=== PATIENT | female | born 1965 | race Caucasian/White ===

== ENCOUNTER 2017-02-17 03:02 | Emergency (ER) | payer BC ==
[2017-02-17 03:10] VITALS: BP 142/97
[2017-02-17] MEDS ORDERED: Sodium Chloride 0.9% 10 ML Syringe FLUSH PRN (03:29)
[2017-02-17] MEDS ORDERED: Ondansetron 4 MG/2 ML SDV IVPUSH ONE (03:29)
[2017-02-17] MEDS ORDERED: Famotidine 20 MG/2 ML SDV IVPUSH ONE (03:29)
[2017-02-17] MEDS ORDERED: Ketorolac 30 MG/ML SDV IVPUSH SCH (03:30)
--- NOTE | 2017-02-17 03:37 | EDM.PDOC ---
ED HPI GENERAL MEDICAL PROBLEM - General Chief Complaint: Gastrointestinal Problem Stated Complaint: cramping Time Seen by Provider: 02/17/17 03:21 Source of Information: Reports: Patient, RN Notes Reviewed - History of Present Illness INITIAL COMMENTS - FREE TEXT/NARRATIVE: 51-year-old female comes in with upper abdominal discomfort comfort, watery diarrhea. She had onset of this last evening about 9 hours ago. She has a steady discomfort upper midabdomen with superimposed severe cramps that come and go. She has had about 3 or 4 episodes of watery diarrhea. She does feel some nausea but has not been vomiting. She states she is been having "attacks of this nature" for about the past 3 weeks. She may have a day or 2 where everything does seem okay and she will get sick once again. She has had prior colonoscopy and that apparently was okay. She does have history of hypertension. She is not aware of other medical problems. - Related Data Allergies Allergy/AdvReac Type Severity Reaction Status Date / Time Sulfa (Sulfonamide Allergy Swelling Verified 04/04/16 11:50 Antibiotics) Home Meds: Home Meds Lisinopril [Prinivil] 1 tab PO ASDIRECTED 04/04/16 [History] Ciprofloxacin HCl [Cipro] 500 mg PO BID #6 tablet 02/17/17 [Rx] Hydrocodone/Acetaminophen [[place] 5-325 Tablet] 1 each PO Q6HR PRN #14 tablet [Rx] Past Medical History Cardiovascular History: Reports: Hypertension Genitourinary History: Reports: Renal Calculus - Past Surgical History Female Surgical History: Reports: Tubal Ligation Social & Family History - Family History Family Medical History: Noncontributory - Tobacco Use Smoking Status *Q: Current Every Day Smoker Years of Tobacco use: 20 Packs/Tins Daily: 0.5 - Caffeine Use Caffeine Use: Reports: Soda - Recreational Drug Use Recreational Drug Use: No ED ROS GENERAL - Review of Systems Review Of Systems: See Below Constitutional: Denies: Fever, Chills, Diaphoresis HEENT: Denies: Throat Pain Respiratory: Denies: Shortness of Breath, Pleuritic Chest Pain Cardiovascular: Denies: Chest Pain GI/Abdominal: Reports: Abdominal Pain (Upper mid abdomen), Diarrhea, Nausea. Denies: Hematochezia, Melena, Vomiting Musculoskeletal: Reports: No Symptoms Skin: Reports: No Symptoms Neurological: Reports: No Symptoms ED EXAM, GI/ABD - Physical Exam Exam: See Below General Appearance: Alert, Moderate Distress Throat/Mouth: Normal Inspection, Normal Oropharynx Neck: Supple Respiratory/Chest: No Respiratory Distress, Lungs Clear, Chest Non-Tender Cardiovascular: Tachycardia GI/Abdominal Exam: Tender. No: Guarding, Rebound (Upper mid abdomen) Back Exam: No: CVA Tenderness (L), CVA Tenderness (R) Extremities: Normal Inspection, Normal Range of Motion Neurological: Alert, Oriented, No Motor/Sensory Deficits Skin Exam: Warm, Dry, Normal Color Course - Vital Signs Last Recorded V/S: Last Vital Signs Temp 97.5 F 02/17/17 03:07 Pulse 107 H 02/17/17 03:07 Resp 16 02/17/17 03:07 BP 142/97 H 02/17/17 03:07 Pulse Ox 95 02/17/17 03:07 - Orders/Labs/Meds Orders: Active Orders 24 hr Category Date Time Status Peripheral IV Care [RC] . DIRECTED Care 02/17/17 03:29 Active Abdomen 2V AP Flat Upright [CR] Stat Exams 02/17/17 03:30 Taken Ketorolac [Toradol] Med 02/17/17 03:30 Active 30 mg IVPUSH ONETIME Sodium Chloride 0.9% [Normal Saline] 1,000 ml Med 02/17/17 03:45 Active IV ONETIME Sodium Chloride 0.9% [Saline Flush] Med 02/17/17 03:29 Active 10 ml FLUSH ASDIRECTED PRN Peripheral IV Insertion Adult [OM.PC] Stat Oth 02/17/17 03:29 Ordered Medication Orders Sodium Chloride (Normal Saline) 1,000 mls @ 999 mls/hr IV ONETIME JONO Last Admin: 02/17/17 03:53 Dose: 999 mls/hr Ketorolac Tromethamine (Toradol) 30 mg IVPUSH ONETIME JONO Last Admin: 02/17/17 03:54 Dose: 30 mg Sodium Chloride (Saline Flush) 10 ml FLUSH ASDIRECTED PRN PRN Reason: Keep Vein Open Last Admin: 02/17/17 03:53 Dose: 10 ml Labs: Laboratory Tests 02/17/17 02/17/17 Range/Units 03:45 03:45 WBC 12.44 H (3.98-10.04) K/mm3 RBC 5.60 H (3.98-5.22) M/mm3 Hgb 16.0 H (11.2-15.7) gm/L Hct 46.6 H (34.1-44.9) % MCV 83.2 (79.4-94.8) fl MCH 28.6 (25.6-32.2) pg MCHC 34.3 (32.2-35.5) g/dl RDW Std Deviation 41.4 (36.4-46.3) fL Plt Count 227 (182-369) K/mm3 MPV 10.4 (9.4-12.3) fl Neut % (Auto) 77.5 H (34.0-71.1) % Lymph % (Auto) 15.5 L (19.3-51.7) % Island % (Auto) 5.4 (4.7-12.5) % Eos % (Auto) 1.1 (0.7-5.8) Baso % (Auto) 0.3 (0.1-1.2) % Neut # (Auto) 9.63 H (1.56-6.13) K/mm3 Lymph # (Auto) 1.93 (1.18-3.74) K/mm3 Island # (Auto) 0.67 H (0.24-0.36) K/mm3 Eos # (Auto) 0.14 (0.04-0.36) K/mm3 Baso # (Auto) 0.04 (0.01-0.08) K/mm3 Sodium 143 (136-145) mEq/L Potassium 3.8 (3.5-5.1) mEq/L Chloride 105 (98-107) mEq/L Carbon Dioxide 27 (21-32) mEq/L Anion Gap 14.8 (5-15) BUN 12 (7-18) mg/dL Creatinine 0.9 (0.55-1.02) mg/dL Est Cr Clr Drug Dosing 53.12 mL/min Estimated GFR (MDRD) > 60 (>60) mL/min BUN/Creatinine Ratio 13.3 L (14-18) Glucose 139 H (74-106) mg/dL Calcium 10.1 (8.5-10.1) mg/dL Total Bilirubin 0.7 (0.2-1.0) mg/dL AST 20 (15-37) U/L ALT 28 (14-59) U/L Alkaline Phosphatase 109 (46-116) U/L Total Protein 7.4 (6.4-8.2) g/dl Albumin 3.9 (3.4-5.0) g/dl Globulin 3.5 gm/dL Albumin/Globulin Ratio 1.1 (1-2) Lipase 108 (73-393) U/L Meds: Medications Generic Name Dose Route Start Last Admin Trade Name Freq PRN Reason Stop Dose Admin Sodium Chloride 1,000 mls @ 999 mls/hr 02/17/17 03:45 02/17/17 03:53 Normal Saline IV 999 mls/hr ONETIME JONO Administration Ketorolac Tromethamine 30 mg 02/17/17 03:30 02/17/17 03:54 Toradol IVPUSH 30 mg ONETIME JONO Administration Sodium Chloride 10 ml 02/17/17 03:29 02/17/17 03:53 Saline Flush FLUSH 10 ml ASDIRECTED PRN Administration Keep Vein Open Discontinued Medications Generic Name Dose Route Start Last Admin Trade Name Freq PRN Reason Stop Dose Admin Famotidine 20 mg 02/17/17 03:29 02/17/17 03:54 Pepcid IVPUSH 02/17/17 03:30 20 mg ONETIME ONE Administration Ondansetron HCl 4 mg 02/17/17 03:29 02/17/17 03:54 Zofran IVPUSH 02/17/17 03:30 4 mg ONETIME ONE Administration - Re-Assessments/Exams Free Text/Narrative Re-Assessment/Exam: 02/17/17 04:46 Feels much better after IV Zofran and Toradol. Flat and upright of the abdomen looks okay there are some very tiny air-fluid levels visible but nothing major, labs are relatively okay. Her pain is completely gone. Discharge instructions as documented Departure - Departure Time of Disposition: 04:46 Disposition: Home, Self-Care 01 Condition: Fair Clinical Impression: Abdominal pain, Diarrhea - Discharge Information Prescriptions: Hydrocodone/Acetaminophen [[place] 5-325 Tablet] 1 each PO Q6HR PRN #14 tablet PRN Reason: Abdominal Pain Ciprofloxacin HCl [Cipro] 500 mg PO BID #6 tablet Forms: ED Department Discharge Additional Instructions: Clear liquids until this evening, then very careful bland diet as tolerated, probiotic, available OTC, twice daily for 1 week and thereafter as needed for any further diarrhea, Cipro antibiotic 500 mg twice daily for 3 days, Tylenol or Motrin for mild to moderate discomfort or hydrocodone if needed for severe pain. Drive or work when taking hydrocodone. Follow-up with your regular medical provider if symptoms not resolving within 1-2 days as expected or if having further difficulties. - My Orders Last 24 Hours: My Active Orders 02/17/17 03:29 Peripheral IV Care [RC] . DIRECTED Sodium Chloride 0.9% [Saline Flush] 10 ml FLUSH ASDIRECTED PRN Peripheral IV Insertion Adult [OM.PC] Stat 02/17/17 03:30 Abdomen 2V AP Flat Upright [CR] Stat Ketorolac [Toradol] 30 mg IVPUSH ONETIME 02/17/17 03:45 Sodium Chloride 0.9% [Normal Saline] 1,000 ml IV ONETIME - Assessment/Plan Last 24 Hours: My Active Orders 02/17/17 03:29 Peripheral IV Care [RC] . DIRECTED Sodium Chloride 0.9% [Saline Flush] 10 ml FLUSH ASDIRECTED PRN Peripheral IV Insertion Adult [OM.PC] Stat 02/17/17 03:30 Abdomen 2V AP Flat Upright [CR] Stat Ketorolac [Toradol] 30 mg IVPUSH ONETIME 02/17/17 03:45 Sodium Chloride 0.9% [Normal Saline] 1,000 ml IV ONETIME
[2017-02-17] MEDS ORDERED: Sodium Chloride 0.9% 1,000 ML IV SCH (03:45)
--- NOTE | 2017-02-17 06:30 | CR ---
Abdomen: Supine view of the abdomen was obtained as well as upright study. Small radiopacities are seen within the left upper abdomen believed to represent ingested material. Bowel gas pattern is normal. Calcifications are seen within the pelvis which are compatible with phleboliths. Bony structures are unremarkable. Impression: 1. Incidental findings. Diagnostic code #2
== END 2017-02-17 05:00 | disposition home or self-care (01) ==
LOC: JD.ED 03:02
DX: R19.7 Diarrhea, unspecified (principal); R10.11 Right upper quadrant pain; F17.210 Nicotine dependence, cigarettes, uncomplicated; I10 Essential (primary) hypertension; Z88.2 Allergy status to sulfonamides
CPT/HCPCS: 36415; 74020; 80053; 83690; 85025; 96361; 96374; 96375; 99284; J1885; J2405; J7040; J7050

== ENCOUNTER 2017-03-17 22:25 | Emergency (ER) | payer BC ==
[2017-03-17 22:45] VITALS: BP 135/92
--- NOTE | 2017-03-17 23:01 | EDM.PDOC ---
ED HPI GENERAL MEDICAL PROBLEM - General Chief Complaint: Genitourinary Problem Stated Complaint: POSS UTI Time Seen by Provider: 03/17/17 22:45 Source of Information: Reports: Patient History Limitations: Reports: No Limitations - History of Present Illness INITIAL COMMENTS - FREE TEXT/NARRATIVE: The patient states that she saw her PCP, Lisa Aubrey, on 03/02/2017 , for upper abdominal pain. A CBC, CMP, lipase, CRP, urinalysis, and H pylori IgG Ab were ordered. Her WBC count was 10.75 with 0% bandemia. Her CRP was unremarkable. Her lipase and CRP were within normal limits, however, her urinalysis was remarkable for 3+ occult blood, nitrate negative, leukocyte esterase negative, too numerous to count RBCs, 0-5 WBCs, 0-5 epithelial cells, and moderate bacteria, and her H pylori IgG Ab was positive. She states that she was started on a triple antibiotic protocol for treatment of an ulcer. The ultrasound of the right upper quadrant was performed on 03/08/2017, which was unremarkable. The patient states that shortly after her visit with Ms. Burgos, she developed gross hematuria. She followed up with Rosy Hou on 03/11/2017. A repeat CBC, CMP, CRP, and urinalysis were performed, along with a CT scan of the abdomen and pelvis without contrast, to evaluate for a ureterolith. The CBC, CMP, and CRP were normal. The urinalysis again demonstrated 3+ occult blood, nitrate negative, leukocyte esterase negative, too numerous to count RBCs, 0-5 WBCs, 0- 5 epithelial cells, and few bacteria. The CT scan of the abdomen and pelvis found a small area of increased density within the left kidney, most likely due to a small hemorrhagic cyst. This was either stable or possibly slightly decreased in size from previous exam. A small nonobstructing stone was noted inferiorly within the left kidney which was stable. No ureteral dilatation or ureteral stone was appreciated. The patient was referred to a Brick Cleaner, to whom she has an appointment to see here in [place] on 04/07/2017, and a Urologist, to whom she has an appointment to see in [place] on 04/19/2014. She does not recall the name of either of these physicians. The patient now presents with urinary urgency all day, but worse for the past 4 hours, along with suprapubic pain all day, dysuria, urinary frequency, and low back pain that developed tonight. No recent fever. No nausea or vomiting. No prior similar symptoms. Pelvic Pain Score (Numeric/FACES): 10 - Related Data Allergies Allergy/AdvReac Type Severity Reaction Status Date / Time Sulfa (Sulfonamide Allergy Swelling Verified 03/17/17 22:38 Antibiotics) Home Meds: Home Meds Lisinopril [Prinivil] 1 tab PO ASDIRECTED 04/04/16 [History] Hyoscyamine [Levsin] 1 tab SL TID PRN 03/18/17 [History] Oxybutynin 1 tab PO Q8H PRN #30 tablet 03/18/17 [Rx] Past Medical History Cardiovascular History: Reports: Hypertension - Past Surgical History HEENT Surgical History: Reports: Other (See Below) (Fractured mandible wiring) Female Surgical History: Reports: Tubal Ligation Social & Family History - Family History Family Medical History: Noncontributory - Tobacco Use Smoking Status *Q: Current Every Day Smoker Years of Tobacco use: 30 Packs/Tins Daily: 0.5 - Caffeine Use Caffeine Use: Reports: Coffee - Alcohol Use Alcohol Use History: No - Recreational Drug Use Recreational Drug Use: No - Living Situation & Occupation Living situation: Reports: , with Spouse Occupation: Employed ([employer]) ED ROS GENERAL - Review of Systems Review Of Systems: ROS reveals no pertinent complaints other than HPI. ED EXAM, RENAL/ - Physical Exam Exam: See Below Exam Limited By: No Limitations General Appearance: Alert, WD/WN, Mild Distress (Appears uncomfortable) Eye Exam: Bilateral Eye: Normal Inspection Ears: Normal External Exam, Hearing Grossly Normal Nose: Normal Inspection, No Blood Throat/Mouth: Normal Inspection, Normal Lips, Normal Voice, No Airway Compromise Head: Atraumatic, Normocephalic Neck: Normal Inspection, Full Range of Motion Respiratory/Chest: No Respiratory Distress, Lungs Clear, Normal Breath Sounds, No Accessory Muscle Use Cardiovascular: Normal Peripheral Pulses, Regular Rate, Rhythm, No Gallop, No JVD, No Murmur, No Rub GI/Abdominal: Normal Bowel Sounds, Soft, No Organomegaly, No Distention, No Abnormal Bruit, No Mass, Tender (Suprapubic only. Essentially nontender elsewhere.), Other (Obese) (Female) Exam: Deferred Rectal (Female) Exam: Deferred Back Exam: Normal Inspection, Full Range of Motion. No: CVA Tenderness (L), CVA Tenderness (R) Extremities: Normal Inspection, Normal Range of Motion, No Pedal Edema, Normal Capillary Refill Neurological: Alert, Oriented, Normal Cognition, No Motor/Sensory Deficits Psychiatric: Normal Affect Skin Exam: Warm, Dry, Intact, Normal Color, No Rash Course - Vital Signs Last Recorded V/S: Last Vital Signs Temp 36.0 C 03/17/17 22:40 Pulse 112 H 03/17/17 22:40 Resp 18 03/17/17 22:40 BP 135/92 H 03/17/17 22:40 Pulse Ox 99 03/17/17 22:40 - Orders/Labs/Meds Orders: Active Orders 24 hr Category Date Time Status CULTURE URINE [RM] Stat Lab 03/18/17 01:16 Received Labs: Laboratory Tests 03/17/17 Range/Units 23:04 Urine Color [place] H (Yellow) Urine Appearance Turbid H (Clear) Urine pH 5.5 (5.0-8.0) Ur Specific [place] > or = 1.030 (1.005-1.030) Urine Protein 1+ H (Negative) Urine Glucose (UA) Negative (Negative) Urine Ketones Negative (Negative) Urine Occult Blood 3+ H (Negative) Urine Nitrite Negative (Negative) Urine Bilirubin 1+ H (Negative) Urine Urobilinogen 1.0 (0.2-1.0) Ur Leukocyte Esterase Negative (Negative) Urine RBC >100 H (0-5) /hpf Urine WBC 0-5 (0-5) /hpf Ur Epithelial Cells 5-10 H (0-5) /hpf Amorphous Sediment Moderate H (NOT SEEN) /hpf Urine Bacteria Rare (FEW) /hpf Urine Mucus Not seen (FEW) /hpf Meds: Medications Discontinued Medications Generic Name Dose Route Start Last Admin Trade Name Freq PRN Reason Stop Dose Admin Oxybutynin Chloride 5 mg 03/18/17 01:14 03/18/17 01:33 Oxybutynin PO 03/18/17 01:15 5 mg ONETIME STA Administration - Re-Assessments/Exams Free Text/Narrative Re-Assessment/Exam: 03/18/17 01:15 Case urinalysis is essentially the same as the prior 2 urinalyses, demonstrating hematuria, but not consistent with a UTI. Case discussed with the Urologist Dr. Jacobs at 01:06. He recommends that we send the urine for culture, and treat her discomfort with Ditropan, otherwise , she needs an outpatient evaluation that includes cystoscopy. He has no other recommendations for the patient's discomfort at this time. Departure - Departure Time of Disposition: 01:22 Disposition: Home, Self-Care 01 Condition: Fair Clinical Impression: Painful bladder spasm, Gross hematuria - Discharge Information Prescriptions: Oxybutynin 1 tab PO Q8H PRN #30 tablet PRN Reason: Pain Instructions: Hematuria, Adult Referrals: Lisa Burgos PA [Primary Care Provider] - Forms: ED Department Discharge, ED Return to Work/School Form Additional Instructions: You were seen in the emergency room for painful urination, the need to urinate frequently, lower abdominal pain, and lower back pain. Workup in the ER included a urinalysis. A urine culture was also sent. Your urinalysis is unchanged from your to prior urinalyses on 03/03/2017 and 03/11, showing blood in the urine, but no suggestion of an infection. Your case was discussed with the Urologist Dr. Jacobs, who recommended that we start you on the anti-spasm medicine Ditropan (oxybutynin). A prescription for this medicine has been sent to the [facility], [address] [place] [address]. They will be open at 9:00 AM. Take one tablet of oxybutynin every 8 hours, as needed for bladder spasm, as prescribed. If this medicine works to relieve your symptoms, additional prescriptions can be prescribed by your PCP, Lisa Burgos. Follow-up with a Urologist at the next available appointment. If any other problems, please do not hesitate to return to the ER. - My Orders Last 24 Hours: My Active Orders 03/18/17 01:16 CULTURE URINE [RM] Stat - Assessment/Plan Last 24 Hours: My Active Orders 03/18/17 01:16 CULTURE URINE [RM] Stat
[2017-03-18] MEDS ORDERED: Oxybutynin 5 MG Tab PO STA (01:14)
== END 2017-03-18 01:45 | disposition home or self-care (01) ==
LOC: JD.ED 22:25
DX: N32.89 Other specified disorders of bladder (principal); R31.0 Gross hematuria; I10 Essential (primary) hypertension; F17.210 Nicotine dependence, cigarettes, uncomplicated; Z88.2 Allergy status to sulfonamides
CPT/HCPCS: 81001; 87086; 99283; A9270

== ENCOUNTER 2017-04-20 07:38 | Day surgery (SDC) | payer BC ==
[~2017-04-20 07:38] MED LIST: Lactated Ringers 1,000 ML IV SCH; Lidocaine 1% 4 ML ONE; Lidocaine 1%/Sod Bicarbonate in NS 8.4% 1 ML Syringe IDERM PRN; Propofol 200 MG/20 ML SDV ONE; Sodium Chloride 0.9% 10 ML Syringe FLUSH PRN
--- NOTE | 2017-04-20 07:57 | PCM.PREANE ---
Preanesthetic Assessment - Anesthesia/Transfusion/Family Hx Anesthesia History: Prior Anesthesia Without Reaction Family History of Anesthesia Reaction: No Transfusion History: No Prior Transfusion(s) - Review of Systems General: No Symptoms Pulmonary: Cough (in am sulaiman of smoking) Cardiovascular: No Symptoms Gastrointestinal: No Symptoms, Abdominal Pain Neurological: No Symptoms Other: Reports: Easy Bruising, Depression (denies) - Physical Assessment NPO Status Date: 04/19/17 NPO Status Time: 23:30 Pulse: 77 O2 Sat by Pulse Oximetry: 95 Respiratory Rate: 16 Blood Pressure: 126/74 Temperature: 97.4 F Height: 5 ft Weight: 66 kg ASA Class: 2 Mental Status: Alert & Oriented x3 Airway Class: Mallampati = 1 Dentition: Reports: Dentures (top) Thyro-Mental Finger Breadths: 3 Mouth Opening Finger Breadths: 3 ROM/Head Extension: Full Lungs: Clear to Auscultation, Normal Respiratory Effort Cardiovascular: Regular Rate, Regular Rhythm - Allergies Allergies/Adverse Reactions: Allergies Allergy/AdvReac Type Severity Reaction Status Date / Time moxifloxacin Allergy Swelling Verified 04/19/17 14:32 Sulfa (Sulfonamide Allergy Swelling Verified 04/19/17 14:32 Antibiotics) - Blood Blood Available: No - Acknowledgements Anesthesia Type Planned: MAC Pt an Appropriate Candidate for the Planned Anesthesia: Yes Alternatives and Risks of Anesthesia Discussed w Pt/Guardian: Yes Pt/Guardian Understands and Agrees with Anesthesia Plan: Yes PreAnesthesia Questionnaire HEENT History: Reports: Other (See Below) Other HEENT History: conjunctivitis, glasses, dentures Cardiovascular History: Reports: Hypertension Respiratory History: Reports: Asthma (inhalers) Gastrointestinal History: Reports: Helicobacter Pylori, Other (See Below) Other Gastrointestinal History: abdominal pain, nausea Genitourinary History: Reports: Renal Calculus, Other (See Below) Other Genitourinary History: dysuria, hematuria [place] History: Reports: None Musculoskeletal History: Reports: Other (See Below) Other Musculoskeletal History: muscle spasms, finger fracture Neurological History: Reports: None Psychiatric History: Reports: Anxiety, Depression Endocrine/Metabolic History: Reports: None Hematologic History: Reports: None Immunologic History: Reports: None Oncologic (Cancer) History: Reports: None Dermatologic History: Reports: Other (See Below) Other Dermatologic History: cellulitis - Past Surgical History Head Surgeries/Procedures: Reports: None HEENT Surgical History: Reports: Other (See Below) Other HEENT Surgeries/Procedures: jaw surgery (broken jaw) Cardiovascular Surgical History: Reports: None Respiratory Surgical History: Reports: None GI Surgical History: Reports: Colonoscopy Female Surgical History: Reports: Tubal Ligation Endocrine Surgical History: Reports: None Neurological Surgical History: Reports: None Oncologic Surgical History: Reports: None - SUBSTANCE USE Smoking Status *Q: Current Every Day Smoker Tobacco Use Within Last Twelve Months: Cigarettes Second Hand Smoke Exposure: Yes Days Per Week of Alcohol Use: 0 Recreational Drug Use History: No - HOME MEDS Home Medications: Home Meds Hyoscyamine [Levsin] 1 tab SL TID PRN 03/18/17 [History] Cyclobenzaprine [Flexeril] 5 mg PO DAILY 04/19/17 [History] Ibuprofen 1 - 3 tab PO Q6H PRN 04/19/17 [History] Losartan/Hydrochlorothiazide [Losartan-HCTZ 50-12.5 MG] 1 tab PO DAILY 04/19/17 [History] - CURRENT (IN HOUSE) MEDS Current Meds: Current Medications Lactated Ringer's (Ringers, Lactated) 1,000 mls @ 125 mls/hr IV ASDIRECTED JONO Stop: 04/20/17 23:00 Lidocaine/Sodium Bicarbonate (Buffered Lidocaine 1% In Ns 8.4%) 0.25 ml IDERM ONETIME PRN PRN Reason: Prior to IV Start Stop: 04/20/17 18:00 Sodium Chloride (Saline Flush) 10 ml FLUSH ASDIRECTED PRN PRN Reason: Keep Vein Open Stop: 04/20/17 18:00 Discontinued Medications Lidocaine HCl (Xylocaine-Mpf 1%) Confirm Administered Dose 4 mls @ as directed .ROUTE .STK-MED ONE Stop: 04/20/17 07:37 Propofol (Diprivan 20 Ml) Confirm Administered Dose 200 mg .ROUTE .STK-MED ONE Stop: 04/20/17 07:37
--- NOTE | 2017-04-20 08:50 | PCM.OPNOTE ---
- General Post-Op/Procedure Note Date of Surgery/Procedure: 04/20/17 Operative Procedure(s): Esophagogastroduodenoscopy with GE junction gastric and antral biopsies Findings: 1. Sliding hiatal hernia with no mary ellen ulcers or erosions seen Pre Op Diagnosis: Epigastric pain in the setting of previous H. pylori infection Post-Op Diagnosis: Sliding hiatal hernia Anesthesia Technique: MAC, Moderate Sedation Primary Surgeon: Hiram Jackson Pathology: GE junction gastric and antral biopsies EBL in mLs: 0 Complications: None Condition: Good Free Text/Narrative:: After adequate IV sedation and analgesia was obtained with monitoring the patient was placed on her left side. Through a bite-block lubricated upper endoscope was inserted into the esophagus and advanced under direct vision to the stomach. Additional air was given here. The scope was introduced through the pylorus into the second part of the duodenum. The second and first parts were endoscopically normal with no mass lesions or inflammatory changes seen. The antrum was unremarkable as well but given her history and took 2 random biopsies for histologic review. The rugal folds were normal. In the retroflexed view the hiatal hernia was seen. The fundic and cardiac regions were endoscopically normal. I took 2 random biopsies in the stomach. The GE junction was patent with no stricturing. Biopsies were taken in this area. No gross endoscopic inflammatory changes were seen. The body of the esophagus was grossly normal. The vocal cords were grossly normal. Air was removed as I finished the procedure which she tolerated well. Photographs are taken for the patient and for the medical record.
[2017-04-20 09:36] VITALS: BP 126/74
--- NOTE | 2017-04-20 09:36 | PCM48HPAN ---
Post Anesthesia Note - EVALUATION WITHIN 48HRS OF ANESTHETIC Vital Signs in Normal Range: Yes Patient Participated in Evaluation: Yes Respiratory Function Stable: Yes Airway Patent: Yes Cardiovascular Function Stable: Yes Hydration Status Stable: Yes Pain Control Satisfactory: Yes Nausea and Vomiting Control Satisfactory: Yes Mental Status Recovered: Yes Pulse Rate: 77 Resp Rate: 16 Temperature: 97.4 F Blood Pressure: 126/74
== END 2017-04-20 09:18 | disposition home or self-care (01) ==
LOC: JD.SDS 07:38
PROVIDERS: ATTEND Surgery
DX: K44.9 Diaphragmatic hernia without obstruction or gangrene (principal); F41.8 Other specified anxiety disorders; I10 Essential (primary) hypertension; N95.1 Menopausal and female climacteric states; F17.210 Nicotine dependence, cigarettes, uncomplicated; Z88.1 Allergy status to other antibiotic agents; Z88.2 Allergy status to sulfonamides; Z79.899 Other long term (current) drug therapy; Z98.51 Tubal ligation status; Z98.890 Other specified postprocedural states
CPT/HCPCS: 43239; J7120; J2704

== ENCOUNTER 2018-06-08 22:03 | Emergency (ER) | payer BC, MEDICAID ==
[2018-06-08] MEDS ORDERED: Dexamethasone 10 MG/ML SDV IM ONE (22:21)
[2018-06-08] MEDS ORDERED: Benzonatate 100 MG Cap PO ONE (22:22)
[2018-06-08] MEDS: Albuterol/Ipratropium 3.0-0.5 MG/3 ML Neb Soln NEB PRN ×2 (22:27→22:50)
--- NOTE | 2018-06-08 22:28 | EDM.PDOC ---
ED HPI GENERAL MEDICAL PROBLEM - General Chief Complaint: Respiratory Problem Stated Complaint: cough Time Seen by Provider: 06/08/18 22:14 Source of Information: Reports: Patient History Limitations: Reports: No Limitations - History of Present Illness INITIAL COMMENTS - FREE TEXT/NARRATIVE: 52-year-old female presents to emergency room with chief complaints of cough for the past 3 weeks. She has been treated by her PCP and his had a negative influenza-positive strep tests chest x-ray was negative. She finished her course of Biaxin for strep last week but continues to have her cough. She was taking Tessalon Perles and Robitussin with codeine which made it better but she is currently out. Patient does report that she quit smoking 3 weeks ago. She does use a albuterol inhaler but continues to have a harsh cough which is causing her chest wall to hurt when she takes a deep breath. She denies any fever or chills. She denies any shortness of breath. Onset Date: 05/18/18 Onset Time: 21:00 Duration: Getting Worse Location: Reports: Chest Severity: Mild Worsens with: Reports: None Associated Symptoms: Reports: Cough. Denies: Fever/Chills, Nausea/Vomiting, Shortness of Breath - Related Data Allergies Allergy/AdvReac Type Severity Reaction Status Date / Time moxifloxacin Allergy Swelling Verified 06/08/18 22:15 Sulfa (Sulfonamide Allergy Swelling Verified 06/08/18 22:15 Antibiotics) Home Meds: Home Meds Ibuprofen 600 tab PO Q6H PRN 04/19/17 [History] Losartan/Hydrochlorothiazide [Losartan-HCTZ 50-12.5 MG] 1 tab PO DAILY 04/19/17 [History] Albuterol [Proventil HFA] 1 inh INH ASDIRECTED PRN 04/20/17 [History] Albuterol [Proventil HFA] 6.7 gm INH ASDIRECTED 04/20/17 [History] Benzonatate [Tessalon Perle] 200 mg PO Q8HR PRN 4 Days #12 capsule 06/08/18 [Rx] predniSONE [Prednisone] 20 mg PO DAILY 5 Days #10 tablet 06/08/18 [Rx] Past Medical History HEENT History: Reports: Other (See Below) Other HEENT History: conjunctivitis, glasses, dentures Cardiovascular History: Reports: Hypertension Respiratory History: Reports: Asthma Gastrointestinal History: Reports: Helicobacter Pylori, Other (See Below) Other Gastrointestinal History: abdominal pain, nausea Genitourinary History: Reports: Renal Calculus, Other (See Below) Other Genitourinary History: dysuria, hematuria 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 Musculoskeletal History: Reports: Other (See Below) Other Musculoskeletal History: muscle spasms, finger fracture Neurological History: Reports: None Psychiatric History: Reports: Anxiety, Depression Endocrine/Metabolic History: Reports: None Hematologic History: Reports: None Immunologic History: Reports: None Oncologic (Cancer) History: Reports: None Dermatologic History: Reports: Other (See Below) Other Dermatologic History: cellulitis - Past Surgical History Head Surgeries/Procedures: Reports: None HEENT Surgical History: Reports: Other (See Below) Other HEENT Surgeries/Procedures: jaw surgery (broken jaw) Cardiovascular Surgical History: Reports: None Respiratory Surgical History: Reports: None GI Surgical History: Reports: Colonoscopy Female Surgical History: Reports: Tubal Ligation Endocrine Surgical History: Reports: None Neurological Surgical History: Reports: None Oncologic Surgical History: Reports: None Social & Family History - Family History Family Medical History: Noncontributory - Tobacco Use Smoking Status *Q: Former Smoker Used Tobacco, but Quit: Yes Month/Year Tobacco Last Used: april 2018 - Caffeine Use Caffeine Use: Reports: Coffee - Recreational Drug Use Recreational Drug Use: No - Living Situation & Occupation Living situation: Reports: , with Spouse Occupation: Employed ([employer] ED ROS GENERAL - Review of Systems Review Of Systems: See Below Constitutional: Denies: Fever, Chills HEENT: Reports: No Symptoms Respiratory: Reports: Wheezing, Cough Cardiovascular: Denies: Chest Pain Endocrine: Reports: No Symptoms GI/Abdominal: Reports: No Symptoms : Reports: No Symptoms Musculoskeletal: Reports: No Symptoms Skin: Reports: No Symptoms Neurological: Reports: No Symptoms Psychiatric: Reports: No Symptoms Hematologic/Lymphatic: Reports: No Symptoms Immunologic: Reports: No Symptoms ED EXAM, GENERAL - Physical Exam Exam: See Below Exam Limited By: Uncooperative General Appearance: Alert, No Apparent Distress Ears: Normal External Exam, Normal Canal, Hearing Grossly Normal, Normal TMs Nose: Normal Inspection, Normal Mucosa, No Blood Throat/Mouth: Normal Inspection, Normal Lips, Normal Teeth, Normal Gums, Normal Oropharynx, Normal Voice, No Airway Compromise Head: Atraumatic, Normocephalic Neck: Normal Inspection, Supple, Non-Tender Respiratory/Chest: Wheezing Cardiovascular: Normal Peripheral Pulses, Regular Rate, Rhythm, No Edema, No Gallop, No JVD, No Murmur, No Rub Back Exam: Normal Inspection, Full Range of Motion Extremities: Normal Inspection, Normal Range of Motion, Non-Tender, No Pedal Edema, Normal Capillary Refill Neurological: Alert, Oriented, CN II-XII Intact, Normal Cognition, Normal Gait, Normal Reflexes, No Motor/Sensory Deficits Psychiatric: Normal Affect, Normal Mood Skin Exam: Warm, Dry, Intact, Normal Color, No Rash Lymphatic: No Adenopathy Course - Vital Signs Last Recorded V/S: Last Vital Signs Temp 97.2 F 06/08/18 22:13 Pulse 109 H 06/08/18 22:13 Resp 17 06/08/18 22:13 BP 148/91 H 06/08/18 22:13 Pulse Ox 96 06/08/18 22:29 - Orders/Labs/Meds Orders: Active Orders 24 hr Category Date Time Status RT Aerosol Therapy [RC] ASDIRECTED Care 06/08/18 22:20 Active Albuterol/Ipratropium [DuoNeb 3.0-0.5 MG/3 ML] Med 06/08/18 22:20 Active 3 ml NEB Q2H PRN Medication Orders Albuterol/Ipratropium (Duoneb 3.0-0.5 Mg/3 Ml) 3 ml NEB Q2H PRN PRN Reason: Cough Stop: 06/09/18 22:21 Last Admin: 06/08/18 22:27 Dose: 3 ml Meds: Medications Generic Name Dose Route Start Last Admin Trade Name Freq PRN Reason Stop Dose Admin Albuterol/Ipratropium 3 ml 06/08/18 22:20 06/08/18 22:50 Duoneb 3.0-0.5 Mg/3 Ml NEB 06/09/18 22:21 3 ml Q2H PRN Administration Cough Discontinued Medications Generic Name Dose Route Start Last Admin Trade Name Freq PRN Reason Stop Dose Admin Benzonatate 200 mg 06/08/18 22:22 06/08/18 22:30 Tessalon Perles PO 06/08/18 22:23 200 mg ONETIME ONE Administration Dexamethasone 10 mg 06/08/18 22:21 06/08/18 22:30 Dexamethasone IM 06/08/18 22:22 10 mg ONETIME ONE Administration - Re-Assessments/Exams Free Text/Narrative Re-Assessment/Exam: 06/08/18 22:58 52 y/o female presented to ER with cc cough for the past 3 weeks. She has recently finished antibiotic for strep throat. She was tested for influenza which was negative and she had a chest x-ray showed no acute disease. She received DuoNeb treatment, Tessalon Perles and Decadron and condition improved. I do not feel she needs further testing at this time. I will discharge home with a short course of prednisone and Tessalon Perles. Instructed patient to follow-up with her PCP. Instructed patient to return to the restroom for new or acutely worsening symptoms. Patient verbalized understanding and is comfortable plan for discharge. Condition is stable at time of discharge. Departure - Departure Time of Disposition: 22:58 Disposition: Home, Self-Care 01 Clinical Impression: Bronchitis - Discharge Information Prescriptions: Benzonatate [Tessalon Perle] 200 mg PO Q8HR PRN 4 Days #12 capsule PRN Reason: Cough predniSONE [Prednisone] 20 mg PO DAILY 5 Days #10 tablet Instructions: How to Use a Metered Dose Inhaler, Acute Bronchitis, Adult, Easy- to-Read, Upper Respiratory Infection, Adult, [id number] Referrals: Yue Burgos PA [Primary Care Provider] - Forms: ED Department Discharge Additional Instructions: You have been diagnosis with bronchitis. Continue to use Albuterol inhaler with spacer as prescribed. Take Prednisone as prescribed. Follow up with your PCP. Return to the ER for any new or acute worsening symptoms. - My Orders Last 24 Hours: My Active Orders 06/08/18 22:20 RT Aerosol Therapy [RC] ASDIRECTED Albuterol/Ipratropium [DuoNeb 3.0-0.5 MG/3 ML] 3 ml NEB Q2H PRN - Assessment/Plan Last 24 Hours: My Active Orders 06/08/18 22:20 RT Aerosol Therapy [RC] ASDIRECTED Albuterol/Ipratropium [DuoNeb 3.0-0.5 MG/3 ML] 3 ml NEB Q2H PRN
[2018-06-08 22:38] VITALS: BP 148/91
== END 2018-06-08 23:07 | disposition home or self-care (01) ==
LOC: JD.ED 22:03
DX: J40 Bronchitis, not specified as acute or chronic (principal); I10 Essential (primary) hypertension; F41.9 Anxiety disorder, unspecified; F32.9 Major depressive disorder, single episode, unspecified; Z87.891 Personal history of nicotine dependence; Z88.1 Allergy status to other antibiotic agents; Z88.2 Allergy status to sulfonamides; Z79.899 Other long term (current) drug therapy
CPT/HCPCS: 94640; 99283; A9270; J1100; J7620-GY

== ENCOUNTER 2018-10-31 23:41 | Emergency (ER) | payer BC ==
[2018-10-31 23:49] VITALS: PULSE 96
[2018-10-31 23:51] VITALS: BP 147/98
--- NOTE | 2018-11-01 00:52 | EDM.PDOC ---
ED HPI GENERAL MEDICAL PROBLEM - General Chief Complaint: Upper Extremity Injury/Pain Stated Complaint: SWOLLEN ELBOW ON RIGHT ARM Time Seen by Provider: 11/01/18 00:48 - History of Present Illness INITIAL COMMENTS - FREE TEXT/NARRATIVE: 53-year-old female presents to the emergency room with swelling over her right elbow. Patient bumped her elbow perhaps as far back as a week ago and has developed some significant swelling over the last couple of days. She has not any fevers or chills. She is able to move her elbow without difficulty. She has no significant discomfort with this. - Related Data Allergies Allergy/AdvReac Type Severity Reaction Status Date / Time moxifloxacin Allergy Swelling Verified 10/31/18 23:49 Sulfa (Sulfonamide Allergy Swelling Verified 10/31/18 23:49 Antibiotics) Home Meds: Home Meds Ibuprofen 600 tab PO Q6H PRN 04/19/17 [History] Losartan/Hydrochlorothiazide [Losartan-HCTZ 50-12.5 MG] 1 tab PO DAILY 04/19/17 [History] Albuterol [Proventil HFA] 1 inh INH ASDIRECTED PRN 04/20/17 [History] Albuterol [Proventil HFA] 6.7 gm INH ASDIRECTED 04/20/17 [History] Hydrocodone/Acetaminophen [Dent 5-325 Tablet] 1 each PO Q6HR PRN #14 tablet 07/09 [Rx] cephALEXin [Keflex] 500 mg PO Q6H #28 cap 11/01/18 [Rx] Past Medical History HEENT History: Reports: Other (See Below) Other HEENT History: conjunctivitis, glasses, dentures Cardiovascular History: Reports: Hypertension Respiratory History: Reports: Asthma Gastrointestinal History: Reports: Helicobacter Pylori, Other (See Below) Other Gastrointestinal History: abdominal pain, nausea Genitourinary History: Reports: Renal Calculus, Other (See Below) Other Genitourinary History: dysuria, hematuria 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 Musculoskeletal History: Reports: Other (See Below) Other Musculoskeletal History: muscle spasms, finger fracture Neurological History: Reports: None Psychiatric History: Reports: Anxiety, Depression Endocrine/Metabolic History: Reports: None Hematologic History: Reports: None Immunologic History: Reports: None Oncologic (Cancer) History: Reports: None Dermatologic History: Reports: Other (See Below) Other Dermatologic History: cellulitis - Past Surgical History Head Surgeries/Procedures: Reports: None HEENT Surgical History: Reports: Other (See Below) Other HEENT Surgeries/Procedures: jaw surgery (broken jaw) Cardiovascular Surgical History: Reports: None Respiratory Surgical History: Reports: None GI Surgical History: Reports: Colonoscopy Female Surgical History: Reports: Tubal Ligation Endocrine Surgical History: Reports: None Neurological Surgical History: Reports: None Oncologic Surgical History: Reports: None Social & Family History - Family History Family Medical History: Noncontributory - Tobacco Use Smoking Status *Q: Current Every Day Smoker Years of Tobacco use: 33 Packs/Tins Daily: 1 - Caffeine Use Caffeine Use: Reports: Coffee, Soda - Recreational Drug Use Recreational Drug Use: No - Living Situation & Occupation Living situation: Reports: , with Spouse Occupation: Employed ([employer]) Review of Systems - Review of Systems Review Of Systems: See Below Constitutional: Reports: No Symptoms Respiratory: Reports: No Symptoms Cardiovascular: Reports: No Symptoms GI/Abdominal: Reports: No Symptoms Skin: Reports: Other (Swelling without redness or warmth over the right elbow) Neurological: Reports: No Symptoms ED EXAM, GENERAL - Physical Exam Exam: See Below Exam Limited By: No Limitations General Appearance: Alert, No Apparent Distress Respiratory/Chest: No Respiratory Distress, Lungs Clear, Normal Breath Sounds Cardiovascular: Regular Rate, Rhythm, No Edema, No Murmur Extremities: Other (Over the right elbow the patient has an obvious olecranon bursitis she has full flexion and extension supination and pronation.) Skin Exam: Other (The skin over her right olecranon is not warm it has a slight irritation possibly an abrasion possibly from the patient scratching it is unclear) Course - Vital Signs Last Recorded V/S: Last Vital Signs Temp 36.7 C 10/31/18 23:46 Pulse 96 10/31/18 23:46 Resp 18 10/31/18 23:46 BP 147/98 H 10/31/18 23:51 Pulse Ox 99 10/31/18 23:46 - Orders/Labs/Meds Orders: Active Orders 24 hr Category Date Time Status Elbow Min 3V Rt [CR] Stat Exams 11/01/18 00:51 Taken - Re-Assessments/Exams Free Text/Narrative Re-Assessment/Exam: 11/01/18 01:28 The patient has a posttraumatic olecranon bursitis that developed while taking ibuprofen 600 mg 4 times a day. X-rays are unremarkable there is no redness or warmth over this however with this developing while taking ibuprofen we will go ahead and start her on cephalexin. Will apply an Sudhir wrap gently to help protect the area and applied gentle pressure. She is to follow-up in the clinic on Tuesday. Departure - Departure Time of Disposition: 01:30 Disposition: Home, Self-Care 01 Clinical Impression: Olecranon bursitis of right elbow - Discharge Information Prescriptions: cephALEXin [Keflex] 500 mg PO Q6H #28 cap Referrals: Latasha Ward PA-C [Primary Care Provider] - Forms: ED Department Discharge, ED Return to Work/School Form Additional Instructions: Return to the emergency room with any questions problems worsening symptoms. Take the antibiotics as directed. Continue your ibuprofen 600 mg 4 times a day. Follow-up in the clinic with your regular provider in 2 days. - My Orders Last 24 Hours: My Active Orders 11/01/18 00:51 Elbow Min 3V Rt [CR] Stat - Assessment/Plan Last 24 Hours: My Active Orders 11/01/18 00:51 Elbow Min 3V Rt [CR] Stat
[2018-11-01] MEDS ORDERED: Cephalexin 500 MG Cap PO ONE (01:24)
--- NOTE | 2018-11-05 05:18 | CR ---
Right elbow: Four views of the right elbow were obtained. Comparison: No prior elbow exam is available. Soft tissue swelling is noted within the olecranon process. Joint spaces are maintained. No joint effusion is seen. No fracture or other bony abnormality is seen. Impression: 1. Soft tissue swelling within the olecranon process. 2. No acute bony abnormality is identified on right elbow study. Diagnostic code #2
== END 2018-11-01 01:38 | disposition home or self-care (01) ==
LOC: JD.ED 23:41
DX: M70.21 Olecranon bursitis, right elbow (principal); I10 Essential (primary) hypertension; J45.909 Unspecified asthma, uncomplicated; F17.210 Nicotine dependence, cigarettes, uncomplicated; Z88.1 Allergy status to other antibiotic agents; Z88.2 Allergy status to sulfonamides; Z79.899 Other long term (current) drug therapy; Z79.51 Long term (current) use of inhaled steroids; Z98.51 Tubal ligation status
CPT/HCPCS: 73080; 99283; A9270

== ENCOUNTER 2020-06-16 15:29 | Emergency (ER) | payer OTHER ==
[2020-06-16 15:44] VITALS: BP 173/105; PULSE 89
--- NOTE | 2020-06-16 16:05 | EDM.PDOC ---
ED HPI GENERAL MEDICAL PROBLEM - General Chief Complaint: Back Pain or Injury Stated Complaint: BACK PAIN Time Seen by Provider: 06/16/20 15:55 - History of Present Illness INITIAL COMMENTS - FREE TEXT/NARRATIVE: 54-year-old female presents the emergency room with upper back pain and having a rib out of position. Almost 2 weeks ago the patient injured her ribs on a trampoline. She is seen her chiropractor multiple times they believe they have got the ribs on one side back in position but not in the other. She was sent here from the chiropractor's office with the hopes of getting a muscle relaxant and possibly started on steroids. Patient is also having difficulty at work doing lifting. She is been using some ibuprofen which seems to help some but not nearly enough. She is not aware of any x-rays have been done since this injury. Right Back Pain Score (Numeric/FACES): 7 - Related Data Allergies Allergy/AdvReac Type Severity Reaction Status Date / Time moxifloxacin Allergy Swelling Verified 06/16/20 15:44 Sulfa (Sulfonamide Allergy Swelling Verified 06/16/20 15:44 Antibiotics) Home Meds: Home Meds Losartan/Hydrochlorothiazide [Losartan-HCTZ 50-12.5 MG] 1 tab PO DAILY 04/19/17 [History] Orphenadrine [Norflex] 100 mg PO BID PRN #14 tab 06/16/20 [Rx] predniSONE [Prednisone] 40 mg PO DAILY #8 tablet 06/16/20 [Rx] Past Medical History HEENT History: Reports: Other (See Below) Other HEENT History: conjunctivitis, glasses, dentures Cardiovascular History: Reports: Hypertension Respiratory History: Reports: Asthma Gastrointestinal History: Reports: Helicobacter Pylori, Other (See Below) Other Gastrointestinal History: abdominal pain, nausea Genitourinary History: Reports: Renal Calculus, Other (See Below) Other Genitourinary History: dysuria, hematuria SIZE 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: 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: None Musculoskeletal History: Reports: Other (See Below) Other Musculoskeletal History: muscle spasms, finger fracture Neurological History: Reports: None Psychiatric History: Reports: Anxiety, Depression Endocrine/Metabolic History: Reports: None Hematologic History: Reports: None Immunologic History: Reports: None Oncologic (Cancer) History: Reports: None Dermatologic History: Reports: Other (See Below) Other Dermatologic History: cellulitis - Infectious Disease History Infectious Disease History: Reports: None - Past Surgical History Head Surgeries/Procedures: Reports: None HEENT Surgical History: Reports: Other (See Below) Other HEENT Surgeries/Procedures: jaw surgery (broken jaw) Cardiovascular Surgical History: Reports: None Respiratory Surgical History: Reports: None GI Surgical History: Reports: Colonoscopy Female Surgical History: Reports: Tubal Ligation Endocrine Surgical History: Reports: None Neurological Surgical History: Reports: None Oncologic Surgical History: Reports: None Social & Family History - Family History Family Medical History: No Pertinent Family History - Tobacco Use Tobacco Use Status *Q: Current Every Day Tobacco User Years of Tobacco use: 30 Packs/Tins Daily: 0.2 - Caffeine Use Caffeine Use: Reports: Coffee, Soda - Recreational Drug Use Recreational Drug Use: No - Living Situation & Occupation Living situation: Reports: , with Spouse Occupation: Employed ([employer]) ED ROS GENERAL - Review of Systems Review Of Systems: See Below Constitutional: Reports: No Symptoms HEENT: Reports: No Symptoms Respiratory: Reports: Pleuritic Chest Pain Cardiovascular: Reports: No Symptoms Endocrine: Reports: No Symptoms GI/Abdominal: Reports: No Symptoms Musculoskeletal: Reports: Back Pain, Other (Rib pain). Denies: Neck Pain Skin: Reports: No Symptoms Neurological: Reports: No Symptoms ED EXAM, GENERAL - Physical Exam Exam: See Below Exam Limited By: No Limitations General Appearance: Alert, No Apparent Distress Head: Atraumatic, Normocephalic Neck: Normal Inspection, Supple, Non-Tender, Full Range of Motion Respiratory/Chest: No Respiratory Distress, Lungs Clear, Normal Breath Sounds, Other (She has some chest wall discomfort and thoracic spine discomfort with palpation) Cardiovascular: Regular Rate, Rhythm, No Edema, No Murmur GI/Abdominal: Normal Bowel Sounds, Soft, Non-Tender Back Exam: Vertebral Tenderness (The lower thoracic area just below the bra line is where tenderness is.) Course - Vital Signs Last Recorded V/S: Last Vital Signs Temp 37.1 C 06/16/20 15:42 Pulse 89 06/16/20 15:42 Resp 15 06/16/20 15:42 BP 173/105 H 06/16/20 15:42 Pulse Ox 95 06/16/20 15:42 - Orders/Labs/Meds Meds: Medications Discontinued Medications Generic Name Dose Route Start Last Admin Trade Name Freq PRN Reason Stop Dose Admin Ketorolac Tromethamine 30 mg 06/16/20 16:57 06/16/20 17:04 Ketorolac 30 Mg/Ml Sdv IM 06/16/20 16:58 30 mg ONETIME ONE Administration Orphenadrine Citrate 100 mg 06/16/20 17:01 Orphenadrine 100 Mg Tab.Er PO 06/16/20 17:02 ONETIME ONE Prednisone 40 mg 06/16/20 16:57 06/16/20 17:04 Prednisone 20 Mg Tab PO 06/16/20 16:58 40 mg ONETIME ONE Administration - Re-Assessments/Exams Free Text/Narrative Re-Assessment/Exam: 06/16/20 17:14 X-rays of the chest nonacute chest with some slight scoliosis of the spine noted 3 view T-spine shows degenerative changes with mild scoliosis again noted she is got a stable anterior wedge deformity within the mid thoracic spine no acute changes however I looked back and this was first identified when she was seen here on the fourth of this month. However the area that she claims is tender with palpation is lower than in the lower thoracic area certainly not the midthoracic area. Reasonable approach with the back pain is to try the muscle relaxants of the steroids and see how she does. Follow-up in the clinic in 2 days if not significantly improving look at advanced imaging to see if we get a idea of this fracture age and see if this is what is causing her discomfort. She palpates her pain below the bra line but the wedge deformities noted in the midthoracic area. Departure - Departure Time of Disposition: 17:25 Disposition: Home, Self-Care 01 Clinical Impression: Lower thoracic back pain - Discharge Information Referrals: Fabi Rodgers NP [Primary Care Provider] - Forms: ED Department Discharge, ED Return to Work/School Form Additional Instructions: Return to the emergency room with any questions problems or worsening symptoms. Take the medication as directed you have been started on the orphenadrine, this is a muscle relaxant take it twice daily. This can cause sedation so be careful and do not drive under the influence. The other medication is prednisone take starting tomorrow morning do not take ibuprofen or Motrin while taking this medication. You may use Tylenol 1000 mg every 6 hours as needed. Follow-up in the clinic in 2 days for recheck if not making good improvement consider advanced imaging to determine the age of the possible fracture seen in your thoracic spine. Sepsis Event Note (ED) - Evaluation Sepsis Screening Result: No Definite Risk - Focused Exam Vital Signs: Vital Signs Temp Pulse Resp BP Pulse Ox 06/16/20 15:42 37.1 C 89 15 173/105 H 95
--- NOTE | 2020-06-16 16:39 | CR ---
Chest: PA view of the chest was obtained. Comparison: Prior chest x-ray of 04/24/20. Heart size is slightly enlarged. Upper mediastinum is normal. Lungs are clear with no acute parenchymal change. Scoliosis is noted within the spine. No acute osseous abnormality is appreciated. Impression: 1. Mild cardiomegaly and slight scoliosis within the spine. 2. Nothing acute is otherwise seen on PA chest x-ray. Diagnostic code #2
--- NOTE | 2020-06-16 16:46 | CR ---
Thoracic spine: AP, lateral and swimmer's views of the thoracic spine were obtained. Comparison: No prior thoracic spine imaging is available. Prior chest x-ray of the 04/24/20. Scattered disc space narrowing within the cervical spine is noted with mild scattered endplate osteophytes. Thoracic spine shows slight anterior wedging within the mid thoracic spine which is stable from prior chest x-ray performed earlier. Scattered disc space narrowing is noted within the thoracic spine. No acute fracture or subluxation is seen. Scoliosis is present. Pedicles are intact. No paravertebral soft tissue swelling is seen. Impression: 1. Degenerative change and mild scoliosis. 2. Stable anterior wedge deformity within the mid thoracic spine. 3. Nothing acute is seen. Diagnostic code #2
[2020-06-16] MEDS ORDERED: Ketorolac 30 MG/ML SDV IM ONE (16:57)
[2020-06-16] MEDS ORDERED: predniSONE 20 MG Tab PO ONE (16:57)
[2020-06-16] MEDS ORDERED: Orphenadrine 100 MG Tab.ER PO ONE (17:01)
== END 2020-06-16 17:35 | disposition home or self-care (01) ==
LOC: JD.ED 15:29
DX: M54.6 Pain in thoracic spine (principal); M54.5 Low back pain; R07.89 Other chest pain; I10 Essential (primary) hypertension; Z72.0 Tobacco use; Z79.899 Other long term (current) drug therapy
CPT/HCPCS: 71045; 72072; 96372; 99283; A9270; J1885; J7512

== ENCOUNTER 2022-12-15 20:28 | Emergency (ER) | payer BC ==
[2022-12-15] MEDS ORDERED: Ketorolac 60 MG/2 ML SDV IM ONE (21:23)
[2022-12-15] MEDS ORDERED: tiZANidine 4 MG Tab PO SCH ×2 (21:30→23:30)
[2022-12-15 23:58] VITALS: BP 117/73; PULSE 74
[2022-12-16] MEDS ORDERED: tiZANidine 4 MG Tab PO SCH (09:00)
== END 2022-12-15 23:55 | disposition home or self-care (01) ==
LOC: JD.ED 20:28
DX: S30.0XXA Contusion of lower back and pelvis, initial encounter (principal); S40.012A Contusion of left shoulder, initial encounter; I10 Essential (primary) hypertension; J45.909 Unspecified asthma, uncomplicated; F17.210 Nicotine dependence, cigarettes, uncomplicated; Z79.899 Other long term (current) drug therapy; Z88.1 Allergy status to other antibiotic agents; Z88.2 Allergy status to sulfonamides; Z91.041 Radiographic dye allergy status; W10.9XXA Fall (on) (from) unspecified stairs and steps, initial encounter
CPT/HCPCS: 72131; 72170; 73030; 96372; 99284; A9270; J1885; 99283

== ENCOUNTER 2023-09-17 23:21 | Emergency (ER) | payer MEDICAID, OTHER ==
[2023-09-18] MEDS: Doxycycline Monohydrate 100 MG Cap PO ONE (01:48)
[2023-09-18] MEDS: Ibuprofen 600 MG Tab PO ONE (01:48)
[2023-09-18] MEDS: tiZANidine 4 MG Tab PO ONE (01:49)
[2023-09-18 02:33] VITALS: BP 158/104; PULSE 83
== END 2023-09-18 01:50 | disposition home or self-care (01) ==
LOC: JD.ED 23:21
DX: S29.011A Strain of muscle and tendon of front wall of thorax, initial encounter (principal); I10 Essential (primary) hypertension; Z88.1 Allergy status to other antibiotic agents; Z88.2 Allergy status to sulfonamides; Z88.8 Allergy status to other drugs, medicaments and biological substances; Z91.041 Radiographic dye allergy status; Z79.899 Other long term (current) drug therapy; W01.198A Fall on same level from slipping, tripping and stumbling with subsequent striking against other object, initial encounter
CPT/HCPCS: 71250; 99283; A9270

== ENCOUNTER 2024-06-04 07:33 | Day surgery (SDC) | payer OTHER, MEDICAID ==
[~2024-06-04 07:33] MED LIST changes: +Bupivacaine 0.25% 10 ML SDV ONE; -Lactated Ringers 1,000 ML IV SCH; -Lidocaine 1% 4 ML ONE; -Lidocaine 1%/Sod Bicarbonate in NS 8.4% 1 ML Syringe IDERM PRN; -Propofol 200 MG/20 ML SDV ONE; +Sodium Chloride 0.9% 10 ML Syringe FLUSH SCH
[2024-06-04] MEDS: Lactated Ringers 1,000 ML IV SCH (07:45)
[2024-06-04] MEDS ORDERED: Ropivacaine 0.5% 5 MG/ML 30 ML SDV ONE (07:57)
[2024-06-04] MEDS ORDERED: EPINEPHrine 1 MG/ML SDV ONE (07:57)
[2024-06-04] MEDS ORDERED: dexmedeTOMIDine HCl 200 MCG/2 ML SDV ONE (07:57)
[2024-06-04] MEDS ORDERED: Dexamethasone 4 MG/ML 5 ML MDV ONE (07:57)
[2024-06-04] MEDS ORDERED: Lidocaine 1% 2 ML ONE (08:00)
[2024-06-04] MEDS ORDERED: fentaNYL 100 MCG/2 ML SDV ONE (08:01)
[2024-06-04] MEDS ORDERED: Midazolam 1 MG/ML 2 ML SDV ONE (08:14)
[2024-06-04] MEDS ORDERED: Propofol 200 MG/20 ML SDV ONE ×3 (08:14→09:36)
[2024-06-04] MEDS ORDERED: Rocuronium 50 MG/5 ML Vial ONE (08:17)
[2024-06-04] MEDS ORDERED: ceFAZolin 2 GM Vial ONE (08:18)
[2024-06-04] MEDS ORDERED: Glycopyrrolate 0.2 MG/ML 2 ML SDV ONE (09:23)
[2024-06-04] MEDS ORDERED: Ondansetron 4 MG/2 ML SDV ONE (09:25)
[2024-06-04] MEDS ORDERED: Sugammadex Sodium 200 MG/2 ML VIAL IV ONE (10:20)
[2024-06-04] MEDS ORDERED: Ondansetron 4 MG/2 ML SDV IVPUSH PRN (10:34)
[2024-06-04] MEDS ORDERED: fentaNYL 100 MCG/2 ML SDV IVPUSH PRN (10:34)
[2024-06-04] MEDS ORDERED: HYDROmorphone 0.5 MG/0.5 ML Syringe IVPUSH PRN (10:34)
[2024-06-04] MEDS ORDERED: Acetaminophen/HYDROcodone 325-5 MG Tab PO PRN (11:22)
[2024-06-04] MEDS: EPINEPHrine 1 MG/ML SDV ONE (11:32)
[2024-06-04 12:55] VITALS: BP 136/81; PULSE 68
== END 2024-06-04 12:30 | disposition home or self-care (01) ==
LOC: JD.SDS 07:33
PROVIDERS: ATTEND Orthopaedic Surgery
DX: S46.011A Strain of muscle(s) and tendon(s) of the rotator cuff of right shoulder, initial encounter (principal); M25.811 Other specified joint disorders, right shoulder; I10 Essential (primary) hypertension; Z88.2 Allergy status to sulfonamides; Z88.8 Allergy status to other drugs, medicaments and biological substances; Z91.041 Radiographic dye allergy status; Z87.891 Personal history of nicotine dependence; Z79.899 Other long term (current) drug therapy
CPT/HCPCS: 29826; 29827; 64415; J0171; J0665; J0690; J1100; J1596; J2003; J2250; J2405; J2704; J2795; J3010; J7120; J3490

== ENCOUNTER 2024-12-28 09:29 | Emergency (ER) | payer MEDICAID, OTHER ==
[2024-12-28] MEDS ORDERED: Sodium Chloride 0.9% 10 ML Syringe FLUSH PRN (10:05)
[2024-12-28] MEDS: Ketorolac 30 MG/ML SDV IVPUSH ONE (10:13)
[2024-12-28 10:21] LABS: BASOPHILS ABSOLUTE AUTO 0.0 K/mm3 (0.0-0.2); BASOPHILS PERCENT AUTO 0.6 % (0.0-1.0); EOSINOPHILS ABSOLUTE AUTO 0.2 K/mm3 (0.0-0.4); EOSINOPHILS PERCENT AUTO 3.4 % (0.0-6.0); IMMATURE GRAN ABSOLUTE AUTO 0.03 K/mm3 (0.00-0.05); IMMATURE GRAN PERCENT AUTO 0.4 % (0.0-0.4); LYMPHOCYTES ABSOLUTE AUTO 1.8 K/mm3 (1.0-4.8); LYMPHOCYTES PERCENT AUTO 26.2 % (24.0-44.0); MEAN PLATELET VOLUME 10.5 fl (9.4-12.3); MONOCYTES ABSOLUTE AUTO 0.5 K/mm3 (0.0-0.8); MONOCYTES PERCENT AUTO 6.9 % (0.0-8.0); NEUTROPHILS ABSOLUTE AUTO 4.4 K/mm3 (1.8-7.7); NEUTROPHILS PERCENT AUTO 62.5 % (41.0-71.0); NRBC ABSOLUTE 0.00 (0.00-0.02); NRBC PERCENT 0.0 % (0.0-0.2); PLATELET COUNT,PLT 257 K/mm3 (150-400); RED BLOOD CELL COUNT 4.98 M/mm3 (4.10-5.30); WHITE BLOOD CELL COUNT,WBC 6.98 K/mm3 (3.9-11.3)
[2024-12-28 10:48] LABS: A/G RATIO 1.2 (1-2); ALANINE AMINOTRANSFERASE,ALT 27.0 U/L (14-59); ASPARTATE AMNIOTRANSFERASE,AST 27.0 U/L (15-37); BILIRUBIN TOTAL 0.5 mg/dL (0.2-1.0); BLOOD UREA NITROGEN,BUN 12.0 mg/dL (7-18); CARBON DIOXIDE,CO2 26.0 mEq/L (21-32); CHLORIDE,CL 105.0 mEq/L (98-107); CREATININE 1.0 mg/dL (0.55-1.02); EST CRCL DRUG DOSING (CG) 43.51 mL/min; ESTIMATED GFR 65.0 mL/min (>60); GLUCOSE RANDOM 119.0 mg/dL (70-99); POTASSIUM,K 3.7 mEq/L (3.5-5.1); PROTEIN TOTAL,TP 6.9 g/dl (6.4-8.2); SODIUM,NA 142.0 mEq/L (136-145)
[2024-12-28 13:19] LABS: APPEARANCE,URINE CLOUDY (Clear); GLUCOSE,URINE NEGATIVE (Negative); OCCULT BLOOD,URINE 3+ (Negative)
[2024-12-28 13:31] LABS: SQUAMOUS EPITHELIAL CELLS,UR 20-30 /hpf (0-5)
[2024-12-28 14:02] VITALS: BP 140/96; PULSE 68
== END 2024-12-28 13:50 | disposition home or self-care (01) ==
LOC: JD.ED 09:29
DX: N20.2 Calculus of kidney with calculus of ureter (principal); I10 Essential (primary) hypertension; J45.909 Unspecified asthma, uncomplicated; Z88.1 Allergy status to other antibiotic agents; Z91.041 Radiographic dye allergy status; Z88.2 Allergy status to sulfonamides; Z79.899 Other long term (current) drug therapy; Z87.891 Personal history of nicotine dependence
CPT/HCPCS: 36415; 74176; 80053; 81001; 83690; 85025; 96374; 99284; J1885; J7030